=== PATIENT | female | born 1955 | race African-American/Black ===

== ENCOUNTER 2019-10-31 04:10 | Inpatient (IN) | payer OTHER ==
[~2019-10-31] VITALS: Ht 165.1 cm; Wt 106.2 kg
[2019-10-31 04:19] VITALS: Ht 165.1 cm; Wt 106.2 kg
[2019-10-31 05:13] LABS: BASOPHIL % 0.5 % (0-2); PLATELET COUNT 181 x10^3mcL (130-400); RED CELL DISTRIBUTION WIDTH 14.3 % (11.5-14.5)
[2019-10-31 05:24] LABS: CALCIUM 9.4 mg/dL (8.5-10.1); CARBON DIOXIDE 28.4 mmol/L (21-32); CHLORIDE SERUM 105 mmol/L (98-107); CREATININE SERUM 0.8 mg/dL (0.6-1.0); GFR1 > 60 mL/min; GLUCOSE SERUM 117 mg/dL (74-106); POTASSIUM SERUM 4.3 mmol/L (3.5-5.1); SODIUM SERUM 138 mmol/L (136-145)
[2019-10-31 05:29] LABS: ALBUMIN 3.7 g/dL (3.4-5.0); ALKALINE PHOSPHATASE 91 U/L (46-116); ALT/SGPT 73 U/L (14-59); AST/SGOT 64 U/L (15-37); BILIRUBIN TOTAL 0.32 mg/dL (0.20-1.00); TOTAL PROTEIN, SERUM 7.8 g/dL (6.4-8.2)
[2019-10-31] MEDS ORDERED: CYMBALTA20 M1 PO (06:44)
[2019-10-31] MEDS ORDERED: CALCIUM500 M1 PO (06:45)
[2019-10-31] MEDS ORDERED: INVEGA SUSTENN234 MG IM (06:46)
[2019-10-31] MEDS ORDERED: THIOTHIXENE2 MG PO (06:47)
[2019-10-31] MEDS ORDERED: NAPROSYN500 MG PO (06:48)
[2019-10-31] MEDS ORDERED: ZESTRIL20 MG PO (06:49)
[2019-10-31] MEDS ORDERED: OLANZAPINE10 MG PO (06:49)
[2019-10-31] MEDS ORDERED: APAP325 MG PO (06:50)
[2019-10-31] MEDS ORDERED: LANTI (06:50)
[2019-10-31] MEDS ORDERED: ACT15 PO (06:51)
[2019-10-31] MEDS ORDERED: ZYPREXA5 M1 PO (06:51)
[2019-10-31] MEDS ORDERED: PLAVIX75 M1 PO (06:52)
[2019-10-31] MEDS ORDERED: BUS10 PO (06:52)
[2019-10-31] MEDS ORDERED: GLIPIZIDE XL10 M1 PO (06:53)
[2019-10-31] MEDS ORDERED: LIPITOR40 MG PO (06:53)
[2019-10-31] MEDS ORDERED: NASAL MIST126 ML (06:53)
[2019-10-31 08:19] LABS: MAGNESIUM 1.9 mg/dL (1.8-2.4)
[2019-10-31 08:38] LABS: CHOLESTEROL/HDL RATIO 2.1
[2019-10-31 08:46] VITALS: BP 149/86
[2019-10-31 09:36] VITALS: BP 149/86
[2019-10-31 12:37] VITALS: BP 150/73
[2019-10-31 15:58] VITALS: BP 116/50
[2019-10-31 21:05] VITALS: BP 118/53
[2019-11-01 05:29] VITALS: BP 147/69
[2019-11-01 06:54] LABS: BASOPHIL % 0.5 % (0-2); PLATELET COUNT 174 x10^3mcL (130-400); RED CELL DISTRIBUTION WIDTH 14.4 % (11.5-14.5)
[2019-11-01 07:04] LABS: CALCIUM 8.9 mg/dL (8.5-10.1); CARBON DIOXIDE 28.2 mmol/L (21-32); CHLORIDE SERUM 104 mmol/L (98-107); CHOLESTEROL 180 mg/dL (<200); CREATININE SERUM 0.8 mg/dL (0.6-1.0); GFR1 > 60 mL/min; GLUCOSE SERUM 182 mg/dL (74-106); POTASSIUM SERUM 4.1 mmol/L (3.5-5.1); SODIUM SERUM 139 mmol/L (136-145); TRIGLYCERIDES 62 mg/dL (<150)
[2019-11-01 07:07] LABS: CHOLESTEROL/HDL RATIO 2.2; HDL CHOLESTEROL 83 mg/dL (40-60)
[2019-11-01 08:55] VITALS: BP 145/60
[2019-11-01 13:49] VITALS: BP 155/62
[2019-11-01 16:42] VITALS: BP 156/72
[2019-11-01 20:58] VITALS: BP 147/75
[2019-11-02 05:54] VITALS: BP 139/60
[2019-11-02 08:55] VITALS: BP 134/54
[2019-11-02 13:05] VITALS: BP 157/72
[2019-11-02 16:04] VITALS: BP 142/69
[2019-11-02 19:26] VITALS: BP 142/69
[2019-11-02 21:28] VITALS: BP 115/48
== END 2019-11-02 21:49 | disposition other institution (70) | DRG 303 ==
LOC: ED 04:10 → DU 06:05
PROVIDERS: Emergency Medicine; ADMIT Internal Medicine
DX: I25.110 Atherosclerotic heart disease of native coronary artery with unstable angina pectoris (principal); E11.65 Type 2 diabetes mellitus with hyperglycemia; E11.42 Type 2 diabetes mellitus with diabetic polyneuropathy; I10 Essential (primary) hypertension; F41.9 Anxiety disorder, unspecified; Z79.84 Long term (current) use of oral hypoglycemic drugs; Z79.899 Other long term (current) drug therapy
CPT/HCPCS: 82962; A9500; G0378; J1815; J2785; Q0092